=== PATIENT | female | born 1960 | race Caucasian/White ===

== ENCOUNTER 2020-12-23 10:07 | Emergency (ER) | payer BC ==
[~2020-12-23] VITALS: Ht 160 cm; Wt 52.2 kg
[2020-12-23 10:51] LABS: BASOPHILS % (AUTO) 0.6 % (0.0-5.0); EOSINOPHILS % (AUTO) 2.7 % (0.0-8.0); HEMATOCRIT 38.4 % (36-48); LYMPHOCYTES % (AUTO) 19.1 % (21.0-51.0); MEAN CORPUSCULAR HEMOGLOBIN 31.1 pg (27.0-33.0); MEAN CORPUSCULAR HGB CONC 33.3 g/dL (32.0-36.0); MEAN CORPUSCULAR VOLUME 93.4 fL (79-99); MONOCYTES % (AUTO) 5.1 % (3.0-13.0); NEUTROPHILS % (AUTO) 72.4 % (40.0-77.0); PLATELET COUNT (AUTO) 284 K/uL (130-400); RED BLOOD CELL COUNT(AUTO) 4.11 MIL/uL (4.00-5.50); WHITE BLOOD COUNT (AUTO) 6.7 K/uL (4.8-10.8)
[2020-12-23] MEDS ORDERED: IPRATROPIUM/ALBUTEROL SULFATE 3 ML SOLUTION IH SCH (11:00)
[2020-12-23 11:11] LABS: CREATININE 0.6 mg/dL (0.5-1.5); POTASSIUM 4.3 mmol/L (3.5-5.1)
[2020-12-23 11:15] LABS: ALBUMIN 3.8 g/dL (3.5-5.0); BILIRUBIN,TOTAL 0.7 mg/dL (0.2-1.0); TOTAL PROTEIN, SERUM 7.8 g/dL (6.0-8.3)
[2020-12-23] MEDS ORDERED: SOLU-MEDROL 40MG VIAL IVP SCH (11:30)
[2020-12-23] MEDS ORDERED: CEFTRIAXONE 1G VIAL IVP SCH (11:30)
[2020-12-23] MEDS ORDERED: CEFTRIAXONE 1G VIAL ONE (11:52)
[2020-12-23] MEDS ORDERED: SOLU-MEDROL 40MG VIAL ONE (11:52)
[2020-12-23] MEDS ORDERED: PRED20TA3 PO (12:38)
[2020-12-23] MEDS ORDERED: ALBU8.5H8 IH (12:38)
[2020-12-23] MEDS ORDERED: AMOX-429 PO (12:38)
[2020-12-23 12:54] VITALS: BP 107/62
== END 2020-12-23 12:55 | disposition home or self-care (01) ==
LOC: EDH 10:07
DX: T78.3XXA Angioneurotic edema, initial encounter (principal); J47.1 Bronchiectasis with (acute) exacerbation; R59.1 Generalized enlarged lymph nodes; Z79.899 Other long term (current) drug therapy; Z79.52 Long term (current) use of systemic steroids; Z88.1 Allergy status to other antibiotic agents; Z88.2 Allergy status to sulfonamides
CPT/HCPCS: 36415; 71046; 80053; 85025; 94640; 96374; 96375; 99284; J0696; J2920